=== PATIENT | male | born 1940 | race Caucasian/White ===

== ENCOUNTER → 2017-04-20 | Outpatient (CLI) | payer MEDICARE, BC ==
[~2017-04-20] MED LIST: ASPIRIN LO-DOSE81 MG PO; CPAP; CPAP INH; CRESTOR10 MG PO; FISH OIL1000 MG PO; FISH OIL500 MG PO; FLOMAX0.4 MG PO; LASIX20 MG PO; NIASPAN500 MG PO; NORVASC5 MG PO; OCUVITE SOFTGE1 EACH PO; PANTOPRAZOLE SO40 MG PO; PLAVIX75 MG PO; PRINIVIL (ZESTR20 MG PO; TENORMIN25 MG PO; THERA-VITE W/ B1 TAB PO; TOPROL XL25 MG PO
[2017-04-20 17:23] LABS: BASOPHIL % 0.7 %; EOSINOPHIL # 0.2 K/uL (0.0-0.5); HEMATOCRIT 38.8 % (37.0-53.0); HEMOGLOBIN 13.2 g/dL (11.0-16.0); IMMATURE GRANULOCYTE % 0.3 %; LYMPHOCYTE # 0.8 K/uL (0.8-4.0); LYMPHOCYTE % 13.2 %; MCV 94.2 fl (83.0-98.0); MONOCYTE # 0.6 K/uL (0.0-1.0); MONOCYTE % 9.9 %; MPV 9.2 fl (9.4-12.4); NEUTROPHIL # (ANC) 4.4 K/uL (1.4-9.0); NEUTROPHIL % 72.9 %; NRBC % 0 /100WBC (0-0.00); PLATELET COUNT 210 K/uL (150-450); RBC 4.12 M/uL (3.50-5.50); RDW-CV 12.7 % (11.9-14.6)
[2017-04-20 17:36] LABS: ANION GAP 10.6 (10.0-19.0); CALCIUM 9.3 mg/dL (8.5-10.5); CREATININE 1.8 mg/dL (0.6-1.3); POTASSIUM 4.6 mMol/L (3.7-5.1); TOTAL BILIRUBIN 0.4 mg/dL (0.0-1.5)
== END | disposition disaster alternative care site (69) ==
LOC: LNHI 17:17
PROVIDERS: Surgery Vascular Surgery
DX: I70.219 Atherosclerosis of native arteries of extremities with intermittent claudication, unspecified extremity (principal)

== ENCOUNTER 2017-04-28 06:55 | Outpatient (CLI) | payer MEDICARE, BC ==
[~2017-04-28] VITALS: Ht 175.3 cm; Wt 93.3 kg
--- NOTE | ~2017-04-28 | OR ---
PATIENT'S NAME: TAVIA MONZON [facility] AGE: 76 Y [address] ROOM: [address] [place] [id number] LOCATION: GPCU ADMIT DATE: 04/28/2017 OR/Procedure Report DISCHARGE DATE: FAMILY PHYSICIAN: Jason Gonzalez MD ATTENDING PHYSICIAN: EUGENE MUNOZ SURGEON: Eugene Munoz MD BALL MACHINE OPERATOR: DATE OF PROCEDURE: 04/28/2017 PREOPERATIVE DIAGNOSIS: Severe claudication, left lower extremity. POSTOPERATIVE DIAGNOSIS: Severe claudication, left lower extremity. PROCEDURE PERFORMED: Aortogram with left lower extremity angiogram, atherectomy, and SFA angioplasty. REPORT DEVELOPER: Toña Sanches M.D. ANESTHESIA: MAC local. ESTIMATED BLOOD LOSS: 40 mL. OPERATIVE FINDINGS: Recanalization of the SFA with 2 vessel runoff. DESCRIPTION OF PROCEDURE: The patient was brought to optical laboratory mechanic, placed supine on the optical laboratory mechanic table, prepped and draped in a sterile manner. Preoperative time-out was performed. The patient received preoperative antibiotics. We gained access to the right common femoral using ultrasound guidance. We infiltrated the skin with 1% lidocaine and then penetrated the common femoral with a micropuncture needle, followed by micropuncture wire, followed by micropuncture sheath. We exchanged using Seldinger technique for a 5-Welsh short sheath. We went up in the aorta using 0.035 Glidewire as well as Omni Flush catheter and performed the aortogram, which showed patent common external and internal iliacs as well as distal aorta as well as patent renal vessels. We went up over the aortic bifurcation, parked our catheter in the common femoral, left, and performed an angiogram which showed a high-grade, almost 90% stenosis of the left SFA, 2 distinct regions. The distal SFA was patent, the popliteal was patent. The patient had 2 vessel runoff to the leg. We exchanged over a stiff wire for a 7-Welsh Destination sheath. We then gave 5000 units of heparin. We then crossed the lesion using 0.035 Glidewire as well as a TrailBlazer catheter. Once the wire was across, we exchanged through the TrailBlazer catheter for a 7 Spider filter device. We then proceeded to shave the device with a TurboHawk, performed atherectomy along the SFA lesions. Once we felt we had removed adequate plaque, we then balloon angioplastied with a 6 x 120 drug-coated balloon. We left the balloon up for PATIENT'S NAME: TAVIA MONZON [facility] AGE: 76 Y [address] ROOM: [address] [address] [facility] ADMIT DATE: 04/28/2017 OR/Procedure Report DISCHARGE DATE: FAMILY PHYSICIAN: Jason Gonzalez MD ATTENDING PHYSICIAN: EUGENE MUNOZ approximately 3 minutes. Completion angiogram showed a patent SFA with no longer any residual stenosis, still had patent 2-vessel runoff without any evidence of embolization. We then retracted the Spider, removed the sheath, held pressure for 15 minutes. Reversed the heparin to protamine. The patient tolerated the procedure well, was transferred to the recovery room, and home later that day. MD JASMEET DOSHI/lucio /[id number] d: 04/28/17 1221 t: 04/29/17 1630, OPERATIVE SUMMARY
== END 2017-04-28 15:50 ==
LOC: GCAT 06:55 → GPCU 06:55 → GPOC 07:00 → GCAT 15:50
PROC: B41G1ZZ Fluoroscopy of Left Lower Extremity Arteries using Low Osmolar Contrast (ICD-10-PCS; principal; 2017-04-28)
PROC: B41D1ZZ Fluoroscopy of Aorta and Bilateral Lower Extremity Arteries using Low Osmolar Contrast (ICD-10-PCS; principal; 2017-04-28)
PROC: 047L3Z1 Dilation of Left Femoral Artery using Drug-Coated Balloon, Percutaneous Approach (ICD-10-PCS; principal; 2017-04-28)
DX: I70.218 Atherosclerosis of native arteries of extremities with intermittent claudication, other extremity (principal); I10 Essential (primary) hypertension; E78.5 Hyperlipidemia, unspecified; Z87.891 Personal history of nicotine dependence; Z95.1 Presence of aortocoronary bypass graft
CPT/HCPCS: C1714; C1725; C1769; C1884; C1887; J0690; J1644; J2001; J2250; J2720; J3010; J7030